=== PATIENT | female | born 1940 | race American Indian/Alaskan Native ===

== ENCOUNTER 2020-06-02 18:04 | Emergency (ER) | payer MEDICARE ==
--- NOTE | 2020-06-02 18:50 | Emergency Department Report ---
ED General Adult HPI - General Stated complaint: PEG TUBE NEEDED Time Seen by Provider: 06/02/20 18:38 Source: EMS - History of Present Illness Initial comments: Patient presents to the emergency department from [facility] for evaluation of a feeding tube. The patient is nonverbal and is on hospice but the family wanted her sent to the emergency department for feeding tube due to her decreased intake of nutrients. Patient is not able to add to history -: unknown Severity scale (0 -10): 0 Improves with: none Worsens with: none Associated Symptoms: denies other symptoms Treatments Prior to Arrival: none ED Review of Systems ROS: Stated complaint: PEG TUBE NEEDED Other details as noted in HPI Comment: Unobtainable due to pts medical conditions ED Physical Exam - General General appearance: other (Patient is cachectic in appearance and nonverbal) - Head Head exam: Present: atraumatic, normocephalic - Eye Eye exam: Present: normal appearance - ENT ENT exam: Present: mucous membranes dry - Respiratory Respiratory exam: Present: normal lung sounds bilaterally. Absent: respiratory distress - Cardiovascular Cardiovascular Exam: Present: regular rate, normal rhythm - GI/Abdominal GI/Abdominal exam: Present: soft. Absent: distended - Neurological Exam Neurological exam: Present: other (Somnolent but arousable to stimuli via touch, not able to completely assess due to the patient's condition) - Psychiatric Psychiatric exam: Present: other (Not able to assess due to the patient's condition) - Skin Skin exam: Present: warm, dry, intact, normal color. Absent: rash ED Medical Decision Making - Medical Decision Making Discussed the patient with her hospitalist and [facility] physician who is Dr. Orellana. Patient will be discharged back to [facility] and will be treated appropriately at their facility Critical care attestation.: If time is entered above; I have spent that time in minutes in the direct care of this critically ill patient, excluding procedure time. ED Disposition Clinical Impression: Nutritional deficiency, unspecified Disposition: DC-01 TO HOME OR SELFCARE Is pt being admited?: No Does the pt Need Aspirin: No Condition: Stable Additional Instructions: Return if worse Referrals: MIO ORELLANA MD [Staff Physician] - 3-5 Days Time of Disposition: 19:07
[2020-06-02 19:58] VITALS: BP 68/42
== END 2020-06-03 01:07 | disposition home or self-care (01) ==
LOC: ED 18:04
DX: E63.9 Nutritional deficiency, unspecified (principal)

== ENCOUNTER 2020-06-03 02:16 | Emergency (ER) | payer MEDICARE ==
--- NOTE | 2020-06-03 02:32 | Emergency Department Report ---
Blank Doc - Documentation Documentation: Patient is 79 years old female, [facility] patient, hospice. Patient was seen last night in the ER for G-tube replacement for decreased p.o. intake. EMS noticed that patient was not breathing. Patient brought back to the emergency room. Patient with no spontaneous breathing and no heart tone. Patient did on arrival. Patient pronounced at 2:27 AM.
== END 2020-06-03 04:00 ==
LOC: ED 02:16
DX: R40.4 Transient alteration of awareness (principal)